=== PATIENT | male | born 1965 | race Caucasian/White ===

== ENCOUNTER 2017-12-30 06:45 | Emergency (ER) | payer MEDICARE, OTHER, MEDICAID ==
[~2017-12-30] VITALS: Ht 182.9 cm; Wt 79.4 kg
[2017-12-30] MEDS ORDERED: XANAX1 MG PO (06:56)
[2017-12-30 07:01] LABS: ABSOLUTE BASOPHILS 0.1 thou/uL (0.0-0.2); ABSOLUTE EOSINOPHILS 0.1 thou/uL (0.0-0.7); ABSOLUTE LYMPHOCYTES 2.6 thou/uL (0.8-5.3); ABSOLUTE NEUTROPHILS 11.2 thou/uL (1.6-8.1); EOSINOPHILS 0.6 %; HEMATOCRIT 47.9 % (42.0-52.0); HEMOGLOBIN 16.2 gm/dL (14.0-18.0); LYMPHOCYTES 17.4 %; MCH 34.8 pg (26.0-34.0); MCHC 33.8 g/dL (28.0-37.0); MCV 103.2 fL (80.0-100.0); MONOCYTES 6.9 %; MPV 7.4 fl. (7.2-11.1); NUCLEATED RBCS 0 /100WBC; PLATELET COUNT* 229 thou/uL (150-400); POLYS 74.1 %; RBC 4.64 mil/uL (4.50-6.00); RDW-CV 12.8 % (10.5-14.5); WBC 15.1 thou/uL (4.0-11.0)
[2017-12-30] MEDS ORDERED: ARTHRITIS (07:18)
[2017-12-30] MEDS ORDERED: ADDERALL 10 MG10 MG PO (07:18)
[2017-12-30] MEDS ORDERED: METHIMAZOLE (07:18)
[2017-12-30] MEDS ORDERED: STOMACH (07:19)
[2017-12-30] MEDS ORDERED: FLEXERIL PO (07:19)
[2017-12-30 07:24] LABS: ANION GAP 8 mmol/L (7-16); BUN 7 mg/dL (7-18); CALCIUM 8.3 mg/dL (8.5-10.1); CHLORIDE 96 mmol/L (98-107); CO2 31 mmol/L (21-32); CREATININE 1.1 mg/dL (0.6-1.3); GLUCOSE 105 mg/dL (70-99); POTASSIUM 3.4 mmol/L (3.5-5.1); SODIUM 135 mmol/L (136-145)
[2017-12-30 07:28] LABS: APTT 29.6 Seconds (25.0-31.3); PROTIME 10.6 Seconds (9.20-11.50)
[2017-12-30 07:42] LABS: ALBUMIN 3.8 g/dL (3.4-5.0); ALKALINE PHOSPHATASE 59 U/L (46-116); CK-MB MASS 1.7 ng/mL (<0.5-3.6); LIPASE 121 U/L (73-393); MAGNESIUM 1.7 mg/dL (1.8-2.4); NT-PRO BRAIN NAT PEPTIDE 23 pg/mL (<300); SGOT 17 U/L (15-37); SGPT 22 U/L (30-65); TOTAL BILIRUBIN 0.5 mg/dL (<0.1-1.0); TOTAL PROTEIN 7.6 g/dL (6.4-8.2); TROPONIN-I LEVEL <0.06 ng/mL (<0.06)
[2017-12-30 09:39] VITALS: BP 119/90
--- NOTE | 2017-12-30 17:10 | EKG ---
[place] [address] ELECTROCARDIOGRAM REPORT Name: YODIT PARIS Room: [facility]#: [id number] Admission: 12/30/17 Attend Phys: Discharge: 12/30/17 Date of : 63 Report #: [id number] THIS REPORT FOR: //name// [facility] ED Test Date: 2017-12-30 Test Time: 06:51:27 Pat Name: YODIT PARIS Department: Room: Gender: M Coffee Attendant: AKIL : 1965 Requested By: Hitesh Murrieta Order Number: [id number] MD: Oscar Carlson Measurements Intervals [place] Rate: 84 P: 81 SC: 140 QRS: 83 QRSD: 113 T: 76 QT: 405 QTc: 479 Interpretive Statements Sinus rhythm Borderline intraventricular conduction delay Borderline prolonged QT interval No previous ECG available for comparison Electronically Signed On 12-30-2017 17:10:20 CDT by Oscar Carlson [email or web address] <ELECTRONICALLY SIGNED> By: Oscar Carlson MD, [facility] 12/30/17 1710 [id number] Oscar Carlson MD, FACC /EPI
== END 2017-12-30 09:40 | disposition home or self-care (01) ==
LOC: M.ERS 06:45
PROVIDERS: Family Medicine
DX: R07.89 Other chest pain (principal); G43.909 Migraine, unspecified, not intractable, without status migrainosus; F17.210 Nicotine dependence, cigarettes, uncomplicated; Z88.8 Allergy status to other drugs, medicaments and biological substances

== ENCOUNTER 2019-09-15 18:46 | Emergency (ER) | payer OTHER, MEDICARE ==
[~2019-09-15] VITALS: Ht 182.9 cm; Wt 81.7 kg
[~2019-09-15 18:46] MED LIST: ADDERALL 10 MG10 MG PO; ARTHRITIS; FLEXERIL PO; METHIMAZOLE; STOMACH; XANAX1 MG PO
[2019-09-15] MEDS ORDERED: MEDROLDOSEPACK PO (20:45)
[2019-09-15] MEDS ORDERED: FLEXERIL PO (20:45)
[2019-09-15 20:59] VITALS: BP 145/75
== END 2019-09-15 21:00 | disposition home or self-care (01) ==
LOC: M.ERS 18:46
DX: M25.551 Pain in right hip (principal); R51 Headache; M54.2 Cervicalgia; R11.0 Nausea; Z88.8 Allergy status to other drugs, medicaments and biological substances; Z79.899 Other long term (current) drug therapy